=== PATIENT | female | born 1990 | race Hispanic/Latino ===

== ENCOUNTER 2024-12-01 12:01 | Outpatient (CLI) | payer BC | END 2024-12-01 12:02 | disposition home or self-care (01) | LOC: CSHULT 12:01 | PROVIDERS: ATTEND Family Medicine | DX: R60.0 Localized edema (principal) | CPT/HCPCS: 93970 ==

== ENCOUNTER 2025-01-07 18:00 | Inpatient (IN) | payer BC ==
[2025-01-07] MEDS ORDERED: Ondansetron PF 4 MG/2 ML Vial IVP PRN (22:37)
[2025-01-07] MEDS ORDERED: Lidocaine 1% (PF) 30 ML VIAL SC PRN (22:37)
[2025-01-07] MEDS ORDERED: Diphenoxylate HCl/Atropine Tablet PO PRN ×2 (22:38)
[2025-01-07] MEDS ORDERED: Ibuprofen 800 MG TAB PO PRN (22:38)
[2025-01-07] MEDS ORDERED: Acetaminophen 500 MG TAB PO PRN (22:38)
[2025-01-07] MEDS ORDERED: Methylergonovine 0.2 MG/ML VIAL IM PRN (22:38)
[2025-01-07] MEDS ORDERED: Oxytocin 30 units/NS 500 ML 500 ML IV SCH ×2 (22:45)
[2025-01-07 23:26] VITALS: BMI 50.9
[2025-01-08 00:01] LABS: Hematocrit 33.7 % (34.9-44.5); Hemoglobin 11.7 g/dL (12.0-15.5); Mean Corpuscular Hemoglobin 28.6 pg (27.0-33.0); Mean Corpuscular Volume 82.4 fL (81.6-98.3); Platelet Count 301 10x3/uL (150-450); Red Blood Cell (RBC) Count 4.09 10x6/uL (3.90-5.03); White Blood Cell (WBC) Count 8.11 10x3/uL (3.5-10.5)
[2025-01-08] MEDS: Penicillin G Potassium 5 MILL.UNITS in Sodium Chloride 0.9% 100 ML IVPB SCH (00:17)
[2025-01-08 00:30] LABS: Syphilis Antibody Index 0.43 S/CO (<1.00 Non-Reactive)
[2025-01-08 00:31] LABS: Hep B Surf Ag - L&D Non-Reactive S/CO (NonReactive)
[2025-01-08 01:03] LABS: ALT (SGPT) 10 U/L (Less than 34); AST (SGOT) 20 U/L (11-34); Albumin 2.8 g/dL (3.1-4.5); Alkaline Phosphatase 236 U/L (40-110); Anion Gap 16 mmol/L (10-20); BUN (Urea Nitrogen) 15 mg/dL (7.0-18.7); Bilirubin, Total 0.2 mg/dL (0.3-1.2); Calc. Creatinine Clearance 322 mL/min (70-130); Calcium 8.3 mg/dL (7.8-10.44); Carbon Dioxide 18 mmol/L (22-29); Chloride 108 mmol/L (98-107); Globulin 3.5 g/dL (2.4-3.5); Glucose 120 mg/dL (70-105); Potassium 4.2 mmol/L (3.5-5.1); Sodium 138 mmol/L (136-145)
[2025-01-08 01:10] LABS: #Basophils 0.03 10x3/uL (0.0-0.2); #Eosinophils 0.08 10x3/uL (0.0-0.5); #Monocytes 0.38 10x3/uL (0.0-1.1); #Neutrophils 5.78 10x3/uL (1.5-8.4); %Basophils 0.4 % (0.0-2.0); %Eosinophils 1.0 % (0.0-6.0); %Lymphocytes 24.9 % (18.0-47.0); %Monocytes 4.5 % (0.0-10.0); %Neutrophils 69.0 % (40.0-75.0)
[2025-01-08 02:28] LABS: Protein, Urine Random Quant 26.0 mg/dL (1-14)
[2025-01-08] MEDS: Penicillin G 2.5 MILL.units 2.5 MILL.UNITS in Premix 1 BAG IVPB SCH (05:00)
[2025-01-08] MEDS: Acetaminophen 500 MG TAB PO SCH (05:00)
[2025-01-08] MEDS: hydrALAZINE 20 MG/ML VIAL SLOW IVP PRN ×2 (10:35→16:40)
[2025-01-08] MEDS ORDERED: hydrALAZINE 20 MG/ML VIAL SLOW IVP PRN (10:35)
[2025-01-08] MEDS ORDERED: Calcium Gluc 4.6 MEQ/10 ML (100 MG/ML) SLOW IVP PRN (10:35)
[2025-01-08] MEDS: Magnesium Sulfate 20 gm/500 ml 20 GM/500 ML BAG IVPB SCH (11:01)
[2025-01-08] MEDS ORDERED: diphenhydrAMINE 50 MG/ML VIAL IVP PRN (17:11)
[2025-01-08] MEDS ORDERED: Communication Order-Pharmacy FS SCH (17:15)
[2025-01-08] MEDS: fentaNYL/Ropivacaine Epidural 100 ML ONE (17:17)
[2025-01-08] MEDS: Ondansetron PF 4 MG/2 ML Vial IVP PRN (17:42)
[2025-01-08] MEDS: Oxytocin 30 units/NS 500 ML 500 ML IV SCH (22:11)
[2025-01-08] MEDS: Acetaminophen 325 MG TAB PO PRN (22:15)
[2025-01-09 04:39] LABS: #Basophils Less than 0.03 10x3/uL (0.0-0.2); #Eosinophils Less than 0.03 10x3/uL (0.0-0.5); #Monocytes 0.39 10x3/uL (0.0-1.1); #Neutrophils 8.19 10x3/uL (1.5-8.4); %Basophils 0.2 % (0.0-2.0); %Eosinophils 0.2 % (0.0-6.0); %Lymphocytes 16.3 % (18.0-47.0); %Monocytes 3.8 % (0.0-10.0); %Neutrophils 79.2 % (40.0-75.0); Hematocrit 33.2 % (34.9-44.5); Hemoglobin 11.1 g/dL (12.0-15.5); Mean Corpuscular Hemoglobin 27.8 pg (27.0-33.0); Mean Corpuscular Volume 83.0 fL (81.6-98.3); Platelet Count 257 10x3/uL (150-450); Red Blood Cell (RBC) Count 4.00 10x6/uL (3.90-5.03); White Blood Cell (WBC) Count 10.33 10x3/uL (3.5-10.5)
[2025-01-09 04:59] LABS: ALT (SGPT) 8 U/L (Less than 34); AST (SGOT) 20 U/L (11-34); Albumin 2.5 g/dL (3.1-4.5); Alkaline Phosphatase 206 U/L (40-110); Anion Gap 14 mmol/L (10-20); BUN (Urea Nitrogen) 10 mg/dL (7.0-18.7); Bilirubin, Total 0.5 mg/dL (0.3-1.2); Calc. Creatinine Clearance 310 mL/min (70-130); Calcium 7.7 mg/dL (7.8-10.44); Carbon Dioxide 16 mmol/L (22-29); Chloride 106 mmol/L (98-107); Globulin 3.7 g/dL (2.4-3.5); Glucose 87 mg/dL (70-105); Magnesium 4.9 mg/dL (1.6-2.6); Potassium 3.9 mmol/L (3.5-5.1); Sodium 132 mmol/L (136-145)
[2025-01-09] MEDS: fentaNYL 2 mcg/Ropivacaine 0.2% Epidural 100 ML CADD EPIDURAL SCH (07:26)
[2025-01-09] MEDS: Penicillin G 2.5 MILL.units 2.5 MILL.UNITS in Premix 1 BAG IVPB SCH (11:36)
[2025-01-09] MEDS ORDERED: Bicitra 30 ML UDCUP PO PRN (16:20)
[2025-01-09] MEDS ORDERED: Famotidine/PF 20 mg/2ml Vial SLOW IVP PRN (16:20)
[2025-01-09] MEDS ORDERED: Azithromycin 500 MG in Sodium Chloride 0.9% 250 ML 250 ML IVPB SCH (16:30)
[2025-01-09] MEDS: Tranexamic Acid 1,000 MG/10 ML VIAL IVP PRN (16:39)
[2025-01-09] MEDS: Carboprost 250 MCG/ML AMP IM PRN (16:39)
[2025-01-09] MEDS ORDERED: Simethicone Chewable 80 MG TAB PO PRN (17:40)
[2025-01-09] MEDS ORDERED: hydrALAZINE 20 MG/ML VIAL SLOW IVP PRN (17:40)
[2025-01-09] MEDS ORDERED: Ondansetron PF 4 MG/2 ML Vial IVP PRN ×3 (17:40→22:22)
[2025-01-09] MEDS ORDERED: Acetaminophen 325 MG TAB PO PRN (17:40)
[2025-01-09] MEDS ORDERED: Oxytocin 30 units/NS 500 ML 500 ML IV SCH (17:45)
[2025-01-09] MEDS ORDERED: Meperidine HCl/PF 25 MG (1 mL) VIAL SLOW IVP PRN (22:22)
[2025-01-09] MEDS ORDERED: diphenhydrAMINE 50 MG/ML VIAL IVP PRN (22:22)
[2025-01-09] MEDS ORDERED: Ketorolac Tromethamine 30 MG (1 mL) VIAL IVP PRN (22:22)
[2025-01-09] MEDS ORDERED: Communication Order-Pharmacy FS SCH (22:30)
[2025-01-09] MEDS: Magnesium Sulfate 20 gm/500 ml 20 GM/500 ML BAG ONE (23:17)
[2025-01-09] MEDS: Ketorolac Tromethamine 30 MG (1 mL) VIAL IVP SCH (23:18)
[2025-01-10 00:29] LABS: Magnesium 4.5 mg/dL (1.6-2.6)
[2025-01-10] MEDS: Erythromycin Base 0.5% Oint 1 GM TUBE ONE (05:42)
[2025-01-10 06:34] LABS: Hematocrit 29.5 % (34.9-44.5); Hemoglobin 10.0 g/dL (12.0-15.5); Mean Corpuscular Hemoglobin 28.1 pg (27.0-33.0); Mean Corpuscular Volume 82.9 fL (81.6-98.3); Platelet Count 246 10x3/uL (150-450); Red Blood Cell (RBC) Count 3.56 10x6/uL (3.90-5.03); White Blood Cell (WBC) Count 11.30 10x3/uL (3.5-10.5)
[2025-01-10] MEDS ORDERED: Enoxaparin 40 MG (0.4 mL) SYRINGE SC SCH ×2 (09:00)
[2025-01-10] MEDS: PHENYLEPHRINE-NS 100 MCG/ML 10 ML SYRINGE ONE (18:29)
[2025-01-10] MEDS: Dexamethasone 10 MG/ML VIAL ONE (18:29)
[2025-01-10] MEDS: Magnesium Sulfate 20 gm/500 ml 20 GM/500 ML BAG ONE ×2 (18:29)
[2025-01-10] MEDS: Oxytocin 10 UNITS/ML VIAL ONE (18:29)
[2025-01-10] MEDS: Ferrous Sulfate 325 MG TAB PO SCH (18:29)
[2025-01-10] MEDS: CEFAZOLIN 1 GM VIAL ONE (18:30)
[2025-01-10] MEDS: PROPOFOL 0 ML ONE (18:30)
[2025-01-10] MEDS: Hepatitis B Vaccine 10 MCG/0.5 ML SYR ONE (18:30)
[2025-01-10] MEDS: Ibuprofen 800 MG TAB PO SCH ×2 (18:32→21:43)
[2025-01-10] MEDS: Enoxaparin 40 MG (0.4 mL) SYRINGE SC SCH (21:51)
[2025-01-11] MEDS: NIFEdipine XL 30 MG ER.TAB PO SCH ×2 (08:42→16:43)
[2025-01-11] MEDS ORDERED: Lidocaine 2% MPF 10 ML AMP (For Epidural Use) ONE (19:12)
[2025-01-11] MEDS ORDERED: Bupivacaine 0.25% HCL 30 ML VIAL ONE (19:12)
[2025-01-12] MEDS: NIFEdipine XL 60 MG ER.TAB PO SCH (08:41)
[2025-01-12] MEDS: Furosemide 20 MG TAB PO SCH (10:10)
[2025-01-12 15:25] VITALS: BP 142/71; TEMP 98
== END 2025-01-12 17:20 | disposition home or self-care (01) | DRG 787 ==
LOC: CSHLD 22:27 → CSHPP 01-10 18:05
PROVIDERS: ADMIT Family Medicine; ATTEND Family Medicine
PROC: 10D00Z1 Extraction of Products of Conception, Low, Open Approach (ICD-10-PCS; principal; 2025-01-09)
PROC: 3E0DXGC Introduction of Other Therapeutic Substance into Mouth and Pharynx, External Approach (ICD-10-PCS; 2025-01-09)
PROC: 0U7C7ZZ Dilation of Cervix, Via Natural or Artificial Opening (ICD-10-PCS; 2025-01-09)
PROC: 10907ZC Drainage of Amniotic Fluid, Therapeutic from Products of Conception, Via Natural or Artificial Opening (ICD-10-PCS; 2025-01-09)
PROC: 10H07YZ Insertion of Other Device into Products of Conception, Via Natural or Artificial Opening (ICD-10-PCS; 2025-01-09)
PROC: 10H073Z Insertion of Monitoring Electrode into Products of Conception, Via Natural or Artificial Opening (ICD-10-PCS; 2025-01-09)
DX: O11.4 Pre-existing hypertension with pre-eclampsia, complicating childbirth (principal); O99.354 Diseases of the nervous system complicating childbirth; O77.0 Labor and delivery complicated by meconium in amniotic fluid; O99.214 Obesity complicating childbirth; E66.01 Morbid (severe) obesity due to excess calories; G56.00 Carpal tunnel syndrome, unspecified upper limb; Z3A.38 38 weeks gestation of pregnancy; Z37.0 Single live birth; Z3A.00 Weeks of gestation of pregnancy not specified
CPT/HCPCS: 36415; 51702; 59200; 80053; 82570; 83735; 84156; 85025; 85027; 86780; 86850; 86900; 86901; 87340; 88307; J0360; J0665; J0690; J1100; J1885; J2250; J2274; J2405; J2540; J2590; J2704; J3010; J3475; J3490; J7120

== ENCOUNTER 2025-01-18 13:05 | Emergency (ER) | payer BC ==
[2025-01-18 13:35] LABS: Glucose, Urine (Dipstick) Normal (Negative); Leukocyte 100 (Negative); Protein, Urine (Dipstick) 30 mg/dl (Neg-Trace); Specific Gravity, Urine 1.020 (1.005-1.030)
[2025-01-18 13:36] LABS: Pregnancy Test - Urine (BHCG) POSITIVE (Negative); Pregu Control Background? CLEAR/WHITE (CLR/WHITE); Pregu Control Bar Appear? YES (CONTROL BAR)
[2025-01-18 13:51] LABS: RBC/HPF 21-50 HPF (0-3)
[2025-01-18 13:52] LABS: Bacteria/HPF 2+ HPF (None Seen); CAUTI Indications for Culture Pelvic or flank pain; Urine Culture Reflex No No
[2025-01-18 14:02] LABS: #Basophils 0.04 10x3/uL (0.0-0.2); #Eosinophils 0.14 10x3/uL (0.0-0.5); #Monocytes 0.51 10x3/uL (0.0-1.1); #Neutrophils 7.02 10x3/uL (1.5-8.4); %Basophils 0.4 % (0.0-2.0); %Eosinophils 1.5 % (0.0-6.0); %Lymphocytes 19.2 % (18.0-47.0); %Monocytes 5.3 % (0.0-10.0); %Neutrophils 73.4 % (40.0-75.0); Hematocrit 35.0 % (34.9-44.5); Hemoglobin 11.7 g/dL (12.0-15.5); Mean Corpuscular Hemoglobin 28.3 pg (27.0-33.0); Mean Corpuscular Volume 84.5 fL (81.6-98.3); Platelet Count 431 10x3/uL (150-450); Red Blood Cell (RBC) Count 4.14 10x6/uL (3.90-5.03); White Blood Cell (WBC) Count 9.57 10x3/uL (3.5-10.5)
[2025-01-18 14:21] LABS: ALT (SGPT) 12 U/L (Less than 34); AST (SGOT) 19 U/L (11-34); Albumin 3.0 g/dL (3.1-4.5); Alkaline Phosphatase 90 U/L (40-110); Anion Gap 13 mmol/L (10-20); BUN (Urea Nitrogen) 12 mg/dL (7.0-18.7); Bilirubin, Total 0.4 mg/dL (0.3-1.2); Calc. Creatinine Clearance 0 mL/min (70-130); Calcium 8.6 mg/dL (7.8-10.44); Carbon Dioxide 23 mmol/L (22-29); Chloride 106 mmol/L (98-107); Globulin 3.6 g/dL (2.4-3.5); Glucose 87 mg/dL (70-105); Potassium 3.7 mmol/L (3.5-5.1); Sodium 138 mmol/L (136-145)
== END 2025-01-18 17:47 | disposition home or self-care (01) ==
LOC: CSHERS 13:05
DX: O86.01 Infection of obstetric surgical wound, superficial incisional site (principal); Z79.899 Other long term (current) drug therapy
CPT/HCPCS: 36415; 76856; 80053; 81001; 81025; 84702; 85025